=== PATIENT | female | born 1950 | race Caucasian/White ===

== ENCOUNTER 2016-12-20 15:14 | Emergency (ER) | payer MEDICARE ==
[~2016-12-20] VITALS: Ht 165.1 cm; Wt 75.0 kg
[2016-12-20 15:18] VITALS: BP 133/97
[2016-12-20] MEDS ORDERED: LOSA25TA5 PO (15:28)
[2016-12-20] MEDS ORDERED: FAMO20TA7 PO (15:28)
[2016-12-20] MEDS ORDERED: ATOR40TA78 PO (15:28)
[2016-12-20] MEDS ORDERED: CARV3.1212 PO (15:28)
[2016-12-20] MEDS ORDERED: ASPI-496 PO (15:28)
[2016-12-20] MEDS ORDERED: CLOP75TA PO (15:28)
[2016-12-20] MEDS ORDERED: BACITRACIN ZINC OINT 500U/GM, 0.9 GM ONE (16:14)
== END 2016-12-20 16:30 | disposition home or self-care (01) ==
LOC: ED 16:24
DX: S42.231A 3-part fracture of surgical neck of right humerus, initial encounter for closed fracture (principal); F17.200 Nicotine dependence, unspecified, uncomplicated; Z88.2 Allergy status to sulfonamides; W01.0XXA Fall on same level from slipping, tripping and stumbling without subsequent striking against object, initial encounter; Y93.01 Activity, walking, marching and hiking; Y92.488 Other paved roadways as the place of occurrence of the external cause; Y99.8 Other external cause status
CPT/HCPCS: 29105